=== PATIENT | female | born 2005 | race Caucasian/White ===

== ENCOUNTER 2025-03-16 02:46 | Emergency (ER) | payer MEDICAID, SELFPAY ==
[2025-03-16 02:47] VITALS: BMI 18.8
--- NOTE | 2025-03-16 02:50 | EKG_ITS ---
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
[2025-03-16 02:56] VITALS: BP 105/52; PULSE 90; RESP 18; TEMP 36.6; O2SAT 98
[2025-03-16] MEDS: DiphenhydrAMINE 25 MG CAPSULE PO (03:41)
--- NOTE | 2025-03-16 03:49 | PD.EDANX ---
ED Anxiety RME/HPI General Chief Complaint: Chest Pain Stated Complaint: CHEST PAIN, SOB Time Seen by Provider: 03/16/25 03:28 Arrival date/time: 03/16/25 02:46 19F with history of severe anxiety (but no meds according to mom) presents to ED with 3 days of travelling CP and intermittent SOB. Mom states patient is in a bad financial/living situation, but no concern for sexual or domestic abuse. Limitations: no limitations Related Data Previous Rx's ?Medication ?Instructions ?Recorded ibuprofen 800 mg tablet 800 mg PO TID #30 tabs 10/26/18 montelukast 10 mg tablet 10 mg PO QPM #30 tabs 05/12/22 Allergies Allergy/AdvReac Type Severity Reaction Status Date / Time No Known Allergies Allergy Verified 03/16/25 02:47 Review of Systems Review of Systems Systems Reviewed: All systems reviewed, normal except as documented Constitutional Constitutional: Reports system reviewed and no additional complaints, except as documented, Denies fever(s) and Denies headache(s) ENT Ears, Nose, Mouth, and Throat: Denies disequilibrium and Denies headache(s) Cardiovascular Cardiovascular: Reports system reviewed and no additional complaints, except as documented, Reports as per HPI, Reports chest pain and Reports dyspnea Respiratory Respiratory: Reports system reviewed and no additional complaints, except as documented, Denies cough and Reports dyspnea Gastrointestinal Gastrointestinal: Reports system reviewed and no additional complaints, except as documented, Denies abdominal pain, Denies nausea and Denies vomiting Neurologic Neurologic: Reports system reviewed and no additional complaints, except as documented, Denies confusion, Denies disequilibrium and Denies headache(s) Psychiatric Psychiatric: Denies confusion Past Medical History Social History SMOKING STATUS: Never smoker SUBSTANCE USE: does not use ED Exam General Limitations: Present no limitations General appearance: Present alert, in no apparent distress and anxious Head Head exam: Present atraumatic Eye Eye exam: Present normal appearance, PERRL and EOMI ENT ENT exam: Present normal exam, normal oropharynx and mucous membranes moist Neck Neck exam: Present normal inspection, full ROM and trachea midline Chest Chest inspection: Present normal inspection and symmetric chest wall rise Respiratory Respiratory exam: Present normal lung sounds bilaterally Cardiovascular Cardiovascular exam: Present regular rate, normal rhythm and normal heart sounds Abdominal Exam Abdominal exam: Present soft and normal bowel sounds Extremities Exam Extremities exam: Present normal inspection and full ROM Back Exam Back exam: Present normal inspection and full ROM Neurological Exam Neurological exam: Present alert, oriented X3 and CN II-XII intact Psychiatric Psychiatric exam: Present normal affect and anxious Expanded Psychiatric Exam Expanded psych exam: Present poor eye contact Skin Skin exam: Present warm, dry, intact and normal color Course Quality Measures none Orders Category Date Time Status EKG (ED ONLY) *Do not use* NOW Care 03/16/25 02:50 Completed EKG (ED Only) Stat Exams 03/16/25 02:50 Draft DiphenhydrAMINE [Benadryl] Med 03/16/25 03:28 Discontinued 25 mg PO X1 ONE Vital Signs Vital signs: Vital Signs Temperature 98 F 03/16/25 02:56 Pulse Rate 90 03/16/25 02:56 Respiratory Rate 18 03/16/25 02:56 Blood Pressure 105/52 L 03/16/25 02:56 Pulse Oximetry (%) 98 03/16/25 02:56 Oxygen Delivery Method Room Air 03/16/25 02:56 Anxiety MDM Narrative MDM Narrative: 19F with history of severe anxiety (but no meds according to mom) presents to ED with 3 days of travelling CP and intermittent SOB. Mom states patient is in a bad financial/living situation, but no concern for sexual or domestic abuse. Physical exam with [employer] reveals clear lungs and RRR. Normal WOB. No obvious thornton on chest. Patient is afebrile, alert, but very anxious/avoidant. Patient will not make eye contact. EKG is NSR. Patient felt better after Benadryl and wants to go. Patient data External records reviewed:: [facility] previous records Clinical information provided by:: patient and parent Social determinants that could affect healthcare access:: mental health Patient has the following chronic illnesses:: anxiety How is presenting disease/condition affected by chronic disease/condition?: exacerbated by Evaluation data The following diagnostics were reviewed and interpreted by me:: EKG tracing(s) Lab and/or radiology exams considered but not ordered:: ordered Interpretation Summary: above Medications / Prescriptions Medications or Prescriptions considered but not ordered:: ordered Medication administrations:: Medication Administration History Discontinued Medications Diphenhydramine HCl (Diphenhydramine 25 Mg Capsule) 25 mg PO X1 ONE Stop: 03/16/25 03:29 Last Admin: 03/16/25 03:41 Dose: 25 mg Documented By: Consultations Consultation(s) initiated? (list below): No Diagnosis Differential diagnosis anxiety: hyperventilation, panic disorder, acute anxiety and other (anxiety due to stress reaction) Most likely diagnosis given after review of the tests above:: anxiety due to stress reaction Admission Indicated Admission indicated?: not indicated Admission Request Was there a request for admission?: No Disposition Plan Disposition Plan: Discharge Discharge Attestation Discharge Attestation: The patient and all family members were given an opportunity to ask questions and understood the discharge instructions. Discharge instructions specifically effects, indications for sooner follow up or return to the emergency department, and the expected course of current diagnosis. Patient condition: Stable Discharge Plan Plan Patient Disposition: HOME (Self Care) Discharge Disposition comment: Stable Prescriptions/Referrals Prescriptions/Med Rec: No Action ibuprofen 800 mg tablet 800 mg PO TID Qty: 30 0RF montelukast 10 mg tablet 10 mg PO QPM Qty: 30 0RF Referrals: Robert Aguirre FNP [Primary Care Provider] - In 1 week Problem List Clinical Impression: Anxiety in acute stress reaction Patient/Caregiver Discharge Instructions Education Materials: Your Body's Response to Anxiety Additional Instructions: Please follow-up with PCP within 24-48 hours and return immediately if symptoms worsen. Print Language: Georgian Stand Alone Forms: Patient Portal Info Letter AAMIR/MALIK Supervising Physician MARIANA Supervising Physician: Dr. Tobar
[2025-03-16 04:17] VITALS: BP 92/56; PULSE 76; RESP 17; TEMP 36.5; O2SAT 98
== END 2025-03-16 04:25 | disposition home or self-care (01) ==
PROVIDERS: Emergency Provider Emergency Medicine
DX: F43.0 Acute stress reaction (principal); F41.1 Generalized anxiety disorder
CPT/HCPCS: 93005; 99283; A9270

== ENCOUNTER → 2025-03-17 | Outpatient (CLI) | payer MEDICAID, SELFPAY ==
--- NOTE | 2025-03-17 13:14 | XR_ITS ---
Examination: PA lateral chest 2 views TECHNIQUE: Upright PA lateral chest 2 views Date and time: 11/17/2024 1336 hours INDICATIONS: Shortness breath chest pain beginning one week ago. FINDINGS: Heart size No pneumonia or pulmonary edema Thoracolumbar dextroscoliosis 19 degrees IMPRESSION: No active disease
== END | disposition home or self-care (01) ==
LOC: CDIM 13:06
PROVIDERS: Referring Provider Physician Assistant; Visit Provider Physician Assistant
DX: M41.9 Scoliosis, unspecified (principal); R06.02 Shortness of breath
CPT/HCPCS: 71046